=== PATIENT | male | born 1990 | race Caucasian/White ===

== ENCOUNTER 2020-10-24 23:33 | Inpatient (IN) | payer MEDICAID, SELFPAY ==
[2020-10-24 23:34] VITALS: BP 121/89; PULSE 131; RESP 18; TEMP 36.6; O2SAT 95; BMI 23.0
[2020-10-25] VITALS (7 sets, daily range): BP systolic 103–123; BP diastolic 60–76; PULSE 77–108; RESP 12–18; TEMP 36.4–37; O2SAT 94–99; BMI 24.6
--- NOTE | 2020-10-25 00:18 | EKG12_ITS ---
Test Reason : SBSTANCE ABUSE Blood Pressure : / mmHG Vent. Rate : 106 BPM Atrial Rate : 106 BPM P-R Int : 148 ms QRS Dur : 078 ms QT Int : 348 ms P-R-T Axes : 053 075 041 degrees QTc Int : 462 ms Sinus tachycardia Nonspecific T wave abnormality Abnormal ECG Confirmed by TRACY SCHOFIELD, ESTEPHANIA ([id number]), food editor RAS GUZMAN ([id number]) on 10/28/2020 9:46:55 AM Referred By: CHLOE Confirmed By:ESTEPHANIA MOLINA MD
--- NOTE | 2020-10-25 00:19 | EDS_ITS ---
HPI History of Present Illness Chief Complaint: Substance Abuse Informant: patient Narrative Narrative: Patient request detox from alcohol and heroin. He states he occasionally does use meth. He will use benzos not uncommonly although that said not his primary drug. He did use benzos today. He injected heroin earlier today. He last drank shortly before coming in. He states he drinks about 12-15 beers a day. He is not sure what happens if he does not drink because he is either always drinking and using drugs or he is in detox. He has been in detox several times. His last was about 2 to 3 weeks ago in [facility]. He states he was clean for about 3 hours after leaving. Detox helps his addiction problems a little bit. Nothing specifically makes them worse. PFSH [facility] Medical History Anxiety Hepatitis C Opiate addiction Smoker Home Medications NK 10/24/20 [History Last Taken Unknown] Allergy/AdvReac Type Severity Reaction Status Date / Time amoxicillin Allergy Angioedema Verified 10/24/20 23:38 Penicillins Allergy Angioedema Verified 10/24/20 23:38 cillins Allergy Angioedema Uncoded 10/24/20 23:38 Surgical History History of mandibular surgery Social History Smoking Status: Current every day smoker tobacco type: cigarettes ROS ROS ED Constitutional Constitutional ED: Denies chills or fever(s) Eyes Eyes: Denies blurry vision ENT ENT ED: Reports rhinorrhea; Denies sore throat Cardiovascular Cardiovascular: Reports other Details: No palpations despite increased heart rate on exam. ; Denies chest pain or palpitations Respiratory/Chest Respiratory/Chest: Denies cough or dyspnea Gastrointestinal Gastrointestinal: Denies abdominal pain, diarrhea, nausea or vomiting Genitourinary Genitourinary ED: Denies dysuria Musculoskeletal Musculoskeletal: Denies arthralgias or myalgias Integumentary Reports other Details: Patient does inject. He denies any history with abscesses or infections. ; Denies abscess or rash Neurologic Neurologic: Denies headache(s) Hematologic/Lymphatic Hematologic/Lymphatic: Denies easy bleeding or easy bruising Allergic/Immunologic Allergic/Immunologic ED: Denies mouth swelling EXAM Physical Exam Const Vital Signs: 10/24/20 23:34 10/25/20 00:55 Temperature 97.8 F 98.2 F Temperature Source Temporal Oral Pulse Rate 131 H 108 H Respiratory Rate 18 12 Blood Pressure 121/89 H 113/76 Blood Pressure Mean 99 88 Blood Pressure Source Monitor Blood Pressure Position Semi-Fowlers Blood Pressure Location Right Arm Pulse Ox 95 94 Oxygen Delivery Method Room Air Room Air Positive well nourished and well developed General Appearance ED: well developed and NAD HEENT atraumatic Eyes EOMs intact bilaterally Chest Wall inspection of chest normal Resp normal respiratory effort and clear to auscultation bilaterally Cardio regular rhythm Rate: tachycardic GI soft to palpation, non-tender, non-distended and no masses Back/Spine no CVA tenderness Extremity Extremity Narrative: He has some track bliss more in his right antecubital fossa than left. No signs of infections. General Extremety ED: Negative for edema or tenderness General Extremity: Negative for edema Neuro oriented x3 Neuro Narrative: Gait is stable when he got up to go to the bathroom. Sensorium / Orientation: alert Psych mental status grossly normal Skin Skin Narrative: Track bliss but no signs of infections. Lesions: no lesions Rashes: no rashes MDM MDM MDM Narrative Medical decision making narrative: Patient's results show essentially normal CBC. Minimal decrease potassium that should correct with diet. Tox screen was positive for benzos and cannabis. Opiates were negative but if he uses fentanyl this may not show. Alcohol was 38. I rechecked the patient. He is sound asleep. I did discuss case with hospitalist. Patient has a somewhat complex history. Lab Data Attestation: I reviewed the patient's lab results. Labs: Laboratory Results - last 24 hr 10/25/20 10/25/20 10/25/20 00:45 00:55 00:55 WBC 6.6 RBC 4.34 L Hgb 13.9 Hct 40.9 MCV 94.2 H MCH 32.0 MCHC 34.0 RDW Std Deviation 44.3 H RDW Coeff of Regla 12.8 Plt Count 236 MPV 9.2 Immature Gran % (Auto) 0.200 Neut % (Auto) 43.2 L Lymph % (Auto) 41.7 H [place] % (Auto) 8.2 Eos % (Auto) 5.9 H Baso % (Auto) 0.8 Absolute Neuts (auto) 2.8 Absolute Lymphs (auto) 2.74 Nucleated RBC % 0 Sodium 141 Potassium 3.2 L Chloride 108 H Carbon Dioxide 26.0 Anion Gap 7 BUN 10 Creatinine 0.78 Estim Creat Clear Calc 149.26 Est GFR (MDRD) Af Amer 153 Est GFR (MDRD) Non-Af 126 BUN/Creatinine Ratio 12.9 Glucose 91 Calcium 8.4 L Total Bilirubin 0.20 AST 49 H ALT 106 H Alkaline Phosphatase 70 Total Protein 6.8 Albumin 3.4 Globulin 3.4 Albumin/Globulin Ratio 1.0 Urine Opiates Screen NEGATIVE Urine Methadone Screen NEGATIVE Ur Barbiturates Screen NEGATIVE Ur Phencyclidine Scrn NEGATIVE Ur Amphetamines Screen NEGATIVE U Methamphetamin-MDMA NEGATIVE U Benzodiazepines Scrn POSITIVE H Urine Cocaine Screen NEGATIVE U Cannabinoids Screen POSITIVE H Ur Drug Screen Comment Ethyl Alcohol 10/25/20 00:55 WBC RBC Hgb Hct MCV MCH MCHC RDW Std Deviation RDW Coeff of Regla Plt Count MPV Immature Gran % (Auto) Neut % (Auto) Lymph % (Auto) [place] % (Auto) Eos % (Auto) Baso % (Auto) Absolute Neuts (auto) Absolute Lymphs (auto) Nucleated RBC % Sodium Potassium Chloride Carbon Dioxide Anion Gap BUN Creatinine Estim Creat Clear Calc Est GFR (MDRD) Af Amer Est GFR (MDRD) Non-Af BUN/Creatinine Ratio Glucose Calcium Total Bilirubin AST ALT Alkaline Phosphatase Total Protein Albumin Globulin Albumin/Globulin Ratio Urine Opiates Screen Urine Methadone Screen Ur Barbiturates Screen Ur Phencyclidine Scrn Ur Amphetamines Screen U Methamphetamin-MDMA U Benzodiazepines Scrn Urine Cocaine Screen U Cannabinoids Screen Ur Drug Screen Comment Ethyl Alcohol 38.0 Discharge Plan Dx/Rx/DC Orders Clinical Impression: Alcohol abuse, Opiate abuse, continuous Disposition Disposition: Acute Care Hospital [facility] Discharge Date/Time: 10/25/20 04:32
[2020-10-25 01:26] LABS: AST(SGOT) 49 U/L (15-37); Alanine Aminotransfer ALT/SGPT 106 U/L (16-61); Albumin, Serum 3.4 g/dL (3.2-5.0); Alkaline Phosphatase 70 U/L (45-117); Anion Gap 7 (5-15); BUN 10 mg/dL (7-18); BUN/Creat Ratio 12.9 RATIO (10-20); Calcium,Total 8.4 mg/dL (8.5-10.1); Chloride 108 mmol/L (98-107); Creatinine, Serum 0.78 mg/dL (0.70-1.30); EST Glomerular Filtration Rate 126 mL/min (>60); Est Glom Filt Rate - Afr Amer 153 mL/min (>60); Estimated Creatinine Clearance 149.26 ml/min; Globulin 3.4 g/dL (2.2-4.2); Glucose 91 mg/dL (74-106); Potassium 3.2 mmol/L (3.5-5.1); Protein, Total 6.8 g/dL (6.4-8.2); Sodium Level 141 mmol/L (136-145)
[2020-10-25 01:27] LABS: Absolute Lymphocyte Count 2.74 X10^3/uL (0.83-4.51); Absolute Neutrophil Count 2.8 X10^3/uL (2.0-7.7); Basophil# 0.05 X10^3/uL; Basophil% 0.8 % (0-1); Eosinophil# 0.39 X10^3/uL; Eosinophils% 5.9 % (0-5); Hematocrit 40.9 % (40-54); Hemoglobin 13.9 g/dL (13.0-16.5); Lymphocyte # 2.74 X10^3/ul (0.83-4.51); Lymphocyte % 41.7 % (19-41); Mean Corpuscular Volume 94.2 fL (80-94); Mean Platelet Vol. 9.2 fl (6.2-12.0); Monocyte# 0.54 X10^3/uL; Monocyte% 8.2 % (0-10); NRBC Flagged by Analyzer 0 % (0-5); Neutrophil # 2.84 X10^3/uL (2.7-7.7); Neutrophil % 43.2 % (47-70); Platelet Count 236 K/mm3 (150-450); RBC Distribution Width CV 12.8 % (11.6-14.6); RBC Distribution Width SD 44.3 fl (35.1-43.9); Red Blood Count 4.34 M/mm3 (4.6-6.2); White Blood Count 6.6 K/mm3 (4.4-11.0)
[2020-10-25 01:28] LABS: Amphetamine Urine VISTA NEGATIVE (<1000 ng/mL); Barbiturate Urine VISTA NEGATIVE (< 200 ng/mL); Benzodiazepine Urine VISTA POSITIVE (< 200 ng/mL); Cocaine Urine VISTA NEGATIVE (< 300 ng/mL); Ecstacy Urine VISTA NEGATIVE (< 500 ng/mL); Methadone Urine VISTA NEGATIVE (< 300 ng/mL); PCP Urine VISTA NEGATIVE (< 25 ng/mL); THC Urine VISTA POSITIVE (< 50 ng/mL); Vista UDS pH Range 5
--- NOTE | 2020-10-25 02:50 | PCM.HP.STD ---
HPI - General General Date of Admission: 10/25/20 Date of Service: 10/25/20 Chief Complaint: Request for medical stabilisation HPI Narrative JOSE YUSUF, is a 30 M who presents requesting for medical stabilization from alcohol and opioid withdrawal. Patient admits to drinking about a bottle of hard liquor and 12 to 15 cans of beer every day. He has been using half a gram of heroin every day. He admitted to having a history of detox 15 times. He was last in detox 2 to 3 weeks ago in [facility]. He stated that he was clean for about 3 hours at 11. He last used heroin a couple of hours prior to admission. His vitals were stable in the ED. His blood work was significant for potassium of 3.2. AST and ALT was mildly elevated at 49 and 106 respectively. Urine tox was positive for benzodiazepines and cannabinoids. [facility] Medical History Anxiety Hepatitis C Opiate addiction Smoker Home Medications NK 10/24/20 [History Last Taken Unknown] Allergy/AdvReac Type Severity Reaction Status Date / Time amoxicillin Allergy Angioedema Verified 10/24/20 23:38 Penicillins Allergy Angioedema Verified 10/24/20 23:38 cillins Allergy Angioedema Uncoded 10/24/20 23:38 Family History (Updated 10/25/20 @ 06:[address] Carrie Hodgson MD) Mother Cancer Heart disease Father Heart disease Surgical History History of mandibular surgery Social History (Updated 10/25/20 @ 06:[address] Carrie Hodgson MD) housing: homeless current gender identity: male Smoking Status: Current every day smoker tobacco type: cigarettes alcohol intake: current Previous attempts at quittin substance use type: heroin and IV drugs ROS ROS Narrative Constitutional: Denies: Anorexia, Chills, Fever, Night Sweats, Weight Change Eyes: Denies: Blurred vision, Cataracts, Conjunctivae Inflammation, Pain, Redness, Vision Change HEENT: Denies: Difficulty Hearing, Difficulty Swallowing, Head Aches, Hearing Changes, Sinus Congestion, Sinus Drainage Cardiovascular: Denies: Chest Pain, Orthopnea, Palpitations Respiratory: Denies: Cough, Shortness of breath at rest, Sputum production Gastrointestinal: Denies: Abdominal Pain, Nausea, Vomiting Genitourinary: Denies: Dysuria Musculoskeletal: Denies: Joint Pain, Joint stiffness, Joint swelling, Joint Tenderness Skin: Denies: Rash, Wounds Neurological: Denies: Numbness, Tingling, Focal weakness Vital Signs Vital Signs Vital Signs: 10/24/20 23:34 10/25/20 00:55 Temperature 97.8 F 98.2 F Temperature Source Temporal Oral Pulse Rate 131 H 108 H Respiratory Rate 18 12 Blood Pressure 121/89 H 113/76 Blood Pressure Mean 99 88 Blood Pressure Source Monitor Blood Pressure Position Semi-Fowlers Blood Pressure Location Right Arm Pulse Ox 95 94 Oxygen Delivery Method Room Air Room Air Weight Weight: 74.843 kg Body Mass Index (BMI) 23.0 Physical Exam Narrative Physical exam: General: Alert, Oriented x3, Cooperative, No apparent distress, Well developed HEENT: Atraumatic Oral: Moist Mucosa Neck: Supple Lungs: Clear to auscultation Cardiovascular: HS I+II, regular, no murmurs Abdomen: Bowel Sounds Present, Soft, Non Tender Extremities: No edema Skin: No rashes, No breakdown Neurological: Grossly intact Psych/Mental Status: Appropriate Results Lab / Micro Data Result Diagrams: 10/25/20 00:55 10/25/20 00:55 Labs: Laboratory Results - last 24 hr 10/25/20 00:45: Urine Opiates Screen NEGATIVE, Urine Methadone Screen NEGATIVE, Ur Barbiturates Screen NEGATIVE, Ur Phencyclidine Scrn NEGATIVE, Ur Amphetamines Screen NEGATIVE, U Methamphetamin-MDMA NEGATIVE, U Benzodiazepines Scrn POSITIVE H, Urine Cocaine Screen NEGATIVE, U Cannabinoids Screen POSITIVE H, Ur Drug Screen Comment 10/25/20 00:55: WBC 6.6, RBC 4.34 L, Hgb 13.9, Hct 40.9, MCV 94.2 H, MCH 32.0, MCHC 34.0, RDW Std Deviation 44.3 H, RDW Coeff of Regla 12.8, Plt Count 236, MPV 9.2, Immature Gran % (Auto) 0.200, Neut % (Auto) 43.2 L, Lymph % (Auto) 41.7 H, [place] % (Auto) 8.2, Eos % (Auto) 5.9 H, Baso % (Auto) 0.8, Absolute Neuts (auto) 2.8, Absolute Lymphs (auto) 2.74, Nucleated RBC % 0 10/25/20 00:55: Sodium 141, Potassium 3.2 L, Chloride 108 H, Carbon Dioxide 26.0, Anion Gap 7, BUN 10, Creatinine 0.78, Estim Creat Clear Calc 149.26, Est GFR (MDRD) Af Amer 153, Est GFR (MDRD) Non-Af 126, BUN/Creatinine Ratio 12.9, Glucose 91, Calcium 8.4 L, Total Bilirubin 0.20, AST 49 H, ALT 106 H, Alkaline Phosphatase 70, Total Protein 6.8, Albumin 3.4, Globulin 3.4, Albumin/Globulin Ratio 1.0 10/25/20 00:55: Ethyl Alcohol 38.0 Assessment & Plan Assessment/Plan (1) Alcohol abuse: (2) Opiate abuse, continuous: (3) Hypokalemia: PLAN: 1. Chronic alcohol abuse, requesting for medical stabilization Will monitor on the alcohol withdrawal protocol 2. Chronic opioid abuse, will monitor on the opiate withdrawal protocol 3. Hypokalemia, replaced, recheck in a.m. 4. Nicotine dependence, on replacement 5. Chronic hep C, not treated, advised patient to follow-up for treatment Charges/Coding Visit Charges Inpatient E&M: 33204 Init Hosp L2
[2020-10-25] MEDS: Dicyclomine 10 MG Capsule 20 MG PO ×2 (05:15→20:39)
[2020-10-25] MEDS: Potassium Chloride Oral Tablet 20 MEQ 60 MEQ PO (05:15)
[2020-10-25] MEDS: Buprenorphine HCl 2 MG TAB.SUBL SL ×3 (05:16→20:38)
[2020-10-25] MEDS: Ibuprofen 600 MG Tablet PO ×3 (05:16→20:42)
[2020-10-25] MEDS: Phenobarbital 32.4 MG Tablet 64.8 MG PO ×5 (05:16→20:38)
[2020-10-25] MEDS: Methocarbamol 750 MG Tablet 1500 MG PO ×3 (05:16→20:38)
[2020-10-25] MEDS: Thiamine Hydrochloride 100 MG Tablet PO (09:18)
[2020-10-25] MEDS: Folic Acid 1 MG Tablet PO (09:18)
--- NOTE | 2020-10-25 13:53 | PN.HOSP_ITS ---
Subjective Subjective He notes that he is continued leg cramping. He has generalized body aches but is more comfortable today. He has occasional stomach cramps and nausea but no vomiting. He last used any heroin about 30 hours ago. He does feel like the medications are helping his withdrawal symptoms. Objective Data Objective Data Vital Signs: Vital Signs Temp Pulse Resp BP Pulse Ox 98.1 F 87 18 114/75 98 10/25/20 13:03 10/25/20 13:03 10/25/20 13:03 10/25/20 13:03 10/25/20 13:03 Oxygen Delivery Method Room Air Weight: 176 lb 12.972 oz Body Mass Index (BMI) 24.6 Intake & Output: Intake and Output for Last 24 Hours 10/23/20 10/24/20 10/25/20 23:59 23:59 23:59 Intake Total 400 / 400 Balance 400 / 400 Lab / Micro Data Result Diagrams: 10/25/20 00:55 10/25/20 00:55 Labs: Laboratory Results - last 24 hr 10/25/20 00:45: Urine Opiates Screen NEGATIVE, Urine Methadone Screen NEGATIVE, Ur Barbiturates Screen NEGATIVE, Ur Phencyclidine Scrn NEGATIVE, Ur Amphetamines Screen NEGATIVE, U Methamphetamin-MDMA NEGATIVE, U Benzodiazepines Scrn POSITIVE H, Urine Cocaine Screen NEGATIVE, U Cannabinoids Screen POSITIVE H, Ur Drug Screen Comment 10/25/20 00:55: WBC 6.6, RBC 4.34 L, Hgb 13.9, Hct 40.9, MCV 94.2 H, MCH 32.0, MCHC 34.0, RDW Std Deviation 44.3 H, RDW Coeff of Regla 12.8, Plt Count 236, MPV 9.2, Immature Gran % (Auto) 0.200, Neut % (Auto) 43.2 L, Lymph % (Auto) 41.7 H, [place] % (Auto) 8.2, Eos % (Auto) 5.9 H, Baso % (Auto) 0.8, Absolute Neuts (auto) 2.8, Absolute Lymphs (auto) 2.74, Nucleated RBC % 0 10/25/20 00:55: Sodium 141, Potassium 3.2 L, Chloride 108 H, Carbon Dioxide 26.0, Anion Gap 7, BUN 10, Creatinine 0.78, Estim Creat Clear Calc 149.26, Est GFR (MDRD) Af Amer 153, Est GFR (MDRD) Non-Af 126, BUN/Creatinine Ratio 12.9, Glucose 91, Calcium 8.4 L, Total Bilirubin 0.20, AST 49 H, ALT 106 H, Alkaline Phosphatase 70, Total Protein 6.8, Albumin 3.4, Globulin 3.4, Albumin/Globulin Ratio 1.0 10/25/20 00:55: Ethyl Alcohol 38.0 Physical Exam Narrative In bed with no acute distress or tachypnea. His lungs were clear to auscultation bilaterally. His heart was regular with a controlled rate and no murmurs or gallops. His skin had no track lines or erythema at his injection sites. He had no pretibial edema or venous stasis changes. He had a normal affect and mood and was interactive when engaged. Assessment & Plan Assessment/Plan (1) Opiate abuse, continuous: (2) Hypokalemia: (3) Alcohol abuse: PLAN: 30-year-old with polysubstance abuse secondary to depression in the setting of an acute transaminitis and hypokalemia. I will repeat his AST and ALT on the morning of 10/26/2020. He will continue with buprenorphine and his alcohol withdrawal assessment. I will supplement his potassium to the oral route and repeat his BMP in the morning. He will be seen by [facility] for outpatient support of his polysubstance abuse. He was open to discussion about emotional health counseling which she has refused in the past. He will continue with his nicotine replacement for his 2 pack/day use. I did review the importance of follow-up of his hepatitis C. He notes that he is interested in doing so but needs to be sober for 6 months in order to pursue treatment. He has only had about 2 weeks of successful sobriety (he actually left an inpatient treatment center after 2 weeks and resume his use).
[2020-10-25] MEDS: Potassium Chloride Oral Tablet 20 MEQ 40 MEQ PO (14:10)
[2020-10-25] MEDS: cloNIDine HCl 0.1 MG Tablet PO (20:39)
[2020-10-26] VITALS (7 sets, daily range): BP systolic 96–109; BP diastolic 61–77; PULSE 75–89; RESP 16; TEMP 36.4–36.7; O2SAT 96–98
[2020-10-26] MEDS: Phenobarbital 32.4 MG Tablet 64.8 MG PO ×6 (01:14→21:30)
[2020-10-26] MEDS: Gabapentin 300 MG Capsule PO ×2 (01:14→21:41)
[2020-10-26] MEDS: Methocarbamol 750 MG Tablet 1500 MG PO ×3 (05:17→23:34)
[2020-10-26] MEDS: Buprenorphine HCl 2 MG TAB.SUBL SL ×3 (05:17→21:30)
[2020-10-26] MEDS: Ibuprofen 600 MG Tablet PO ×2 (05:17→21:42)
[2020-10-26 07:06] LABS: AST(SGOT) 46 U/L (15-37); Alanine Aminotransfer ALT/SGPT 111 U/L (16-61); Anion Gap 5 (5-15); BUN 13 mg/dL (7-18); BUN/Creat Ratio 17.4 RATIO (10-20); Calcium,Total 8.2 mg/dL (8.5-10.1); Chloride 106 mmol/L (98-107); Creatinine, Serum 0.75 mg/dL (0.70-1.30); EST Glomerular Filtration Rate 132 mL/min (>60); Est Glom Filt Rate - Afr Amer 159 mL/min (>60); Estimated Creatinine Clearance 156.18 ml/min; Glucose 86 mg/dL (74-106); Potassium 4.6 mmol/L (3.5-5.1); Sodium Level 137 mmol/L (136-145)
--- NOTE | 2020-10-26 08:05 | PN.HOSP_ITS ---
Subjective Subjective Patient is a 30-year-old gentleman with history of chronic opioid dependence uses heroin and fentanyl admitted with acute opioid withdrawal Objective Data Objective Data Vital Signs: Vital Signs Temp Pulse Resp BP Pulse Ox 97.5 F L 81 16 96/66 98 10/26/20 05:08 10/26/20 05:08 10/26/20 05:08 10/26/20 05:08 10/26/20 05:08 Oxygen Delivery Method Room Air Weight: 80.2 kg Body Mass Index (BMI) 24.6 Intake & Output: Intake and Output for Last 24 Hours 10/24/20 10/25/20 10/26/20 23:59 23:59 23:59 Intake Total 900 / 900 1000 / 1000 Output Total 600 / 600 Balance 900 / 300 400 / 400 Lab / Micro Data Result Diagrams: 10/25/20 00:55 10/26/20 06:32 Labs: Laboratory Results - last 24 hr 10/26/20 06:32: Sodium 137, Potassium 4.6, Chloride 106, Carbon Dioxide 26.0, Anion Gap 5, BUN 13, Creatinine 0.75, Estim Creat Clear Calc 156.18, Est GFR (MDRD) Af Amer 159, Est GFR (MDRD) Non-Af 132, BUN/Creatinine Ratio 17.4, G lucose 86, Calcium 8.2 L, AST 46 H, ALT 111 H Physical Exam Narrative GENERAL: cooperative HEENT: Atraumatic; EYES; Anicteric, Normal Conjunctiva NECK; supple, normal thyroid, RESPIRATORY: Diminished to auscultation CARDIOVASCULAR: Regular S1 S2, GI: soft, normoactive bowel sounds, : No Renal angle tenderness; EXTREMITIES: No edema, no clubbing, MUSCULOSKELETAL: no muscle waisting NEURO: Awake; no lateralizing signs. SKIN: No Rash PSYCH; Flat affect Assessment & Plan Assessment/Plan (1) Opiate abuse, continuous: (2) Hypokalemia: (3) Alcohol abuse: PLAN: Patient is a 30-year-old gentleman with history of chronic opioid dependence uses heroin and fentanyl admitted with acute opioid withdrawal 1. Acute opiate withdrawal - Patient has been admitted to the regular nursing floor currently being managed with a [facility] medical stabilization program with tapering dose of Subutex 10 and adjuvant treatment for his other symptoms 2. Mild transaminitis ?Monitoring daily LFTs 3. Hypokalemia ?Corrected per protocol 4. Tobacco dependence - Counseled on cessation, offered nicotine patch for tobacco cravings 5. DVT prophylaxis ?Low risk did encourage ambulation Charges/Coding Visit Charges Inpatient E&M: 39096 Subs Hosp L2
[2020-10-26] MEDS: Thiamine Hydrochloride 100 MG Tablet PO (08:51)
[2020-10-26] MEDS: Folic Acid 1 MG Tablet PO (08:51)
[2020-10-26] MEDS: Dicyclomine 10 MG Capsule 20 MG PO ×3 (09:07→23:34)
[2020-10-26] MEDS: cloNIDine HCl 0.1 MG Tablet PO (09:07)
[2020-10-26] MEDS: Acetaminophen 500 MG Tablet PO (09:07)
--- NOTE | 2020-10-26 11:33 | ADDICTION ---
This hand sign writer met with PT to conduct ASAM, MSE, AUDIT, DUDIT assessments and to plan for d/c. PT A+Ox4 and participated actively. All assessments completed. This worker is working on getting client into a residential facility. D/P will be completed once a facility is acquired. This worker will discuss transportation once residential facility is determined.
[2020-10-27 00:52] VITALS: BP 106/69; PULSE 83; RESP 16; TEMP 36.5; O2SAT 96
[2020-10-27] MEDS: Phenobarbital 32.4 MG Tablet 64.8 MG PO ×5 (00:56→19:14)
[2020-10-27] MEDS: hydrOXYzine PAM 25 MG Capsule 50 MG PO ×4 (00:56→22:41)
[2020-10-27] MEDS: Buprenorphine HCl 2 MG TAB.SUBL SL ×2 (05:08→17:11)
[2020-10-27] MEDS: Ibuprofen 600 MG Tablet PO (05:45)
[2020-10-27] MEDS: Methocarbamol 750 MG Tablet 1500 MG PO ×2 (05:45→22:41)
--- NOTE | 2020-10-27 07:26 | PCM.PN.HOSP ---
Subjective Subjective Patient seen admit to significant improvement in his overall condition regarding his withdrawal symptoms Objective Data Objective Data Vital Signs: Vital Signs Temp Pulse Resp BP Pulse Ox 97.7 F L 83 16 106/69 96 10/27/20 00:52 10/27/20 00:52 10/27/20 00:52 10/27/20 00:52 10/27/20 00:52 Oxygen Delivery Method Room Air Weight: 80.2 kg Body Mass Index (BMI) 24.6 Intake & Output: Intake and Output for Last 24 Hours 10/25/20 10/26/20 10/27/20 23:59 23:59 23:59 Intake Total 900 / 900 2250 / 2570 620 / 620 Output Total 600 / 600 Balance 900 / 300 1650 / 1970 620 / 620 Lab / Micro Data Result Diagrams: 10/25/20 00:55 10/26/20 06:32 Physical Exam Narrative GENERAL: cooperative HEENT: Atraumatic; EYES; Anicteric, Normal Conjunctiva NECK; supple, normal thyroid, RESPIRATORY: Diminished to auscultation CARDIOVASCULAR: Regular S1 S2, GI: soft, normoactive bowel sounds, : No Renal angle tenderness; EXTREMITIES: No edema, no clubbing, MUSCULOSKELETAL: no muscle waisting NEURO: Awake; no lateralizing signs. SKIN: No Rash PSYCH; Flat affect Assessment & Plan Assessment/Plan (1) Opiate abuse, continuous: (2) Hypokalemia: (3) Alcohol abuse: PLAN: Patient is a 30-year-old gentleman with history of chronic opioid dependence uses heroin and fentanyl admitted with acute opioid withdrawal 1. Acute opiate withdrawal - Patient has been admitted to the regular nursing floor currently being managed with a [facility] medical stabilization program with tapering dose of Subutex 10 and adjuvant treatment for his other symptoms -10/27/2020; Patient seen admit to significant improvement in his overall condition regarding his withdrawal symptoms. Patient also to be evaluated by the counseling services 2. Mild transaminitis ?Monitoring daily LFTs 3. Hypokalemia ?Corrected per protocol 4. Tobacco dependence - Counseled on cessation, offered nicotine patch for tobacco cravings 5. DVT prophylaxis ?Low risk did encourage ambulation Charges/Coding Visit Charges Inpatient E&M: 79178 Subs Hosp L2
[2020-10-27] MEDS: Thiamine Hydrochloride 100 MG Tablet PO (08:42)
[2020-10-27] MEDS: Gabapentin 300 MG Capsule PO (08:42)
[2020-10-27] MEDS: Dicyclomine 10 MG Capsule 20 MG PO ×2 (08:42→22:41)
[2020-10-27] MEDS: Folic Acid 1 MG Tablet PO (08:43)
[2020-10-27 08:47] VITALS: BP 107/82; PULSE 87; RESP 16; TEMP 36.6; O2SAT 100
--- NOTE | 2020-10-27 11:56 | ADDICTION ---
This short story writer followed up with client to inform him that [facility] does not currently have any beds. This short story writer will continue to look for residential inpatient facilities. Patient has agreed that if a bed has not been located upon discharge he will admit to [facility] for housing and addiction groups.
[2020-10-27] MEDS: cloNIDine HCl 0.1 MG Tablet PO (13:11)
[2020-10-27 13:50] VITALS: BP 111/61; PULSE 88; RESP 16; TEMP 36.4; O2SAT 99
--- NOTE | 2020-10-27 14:44 | CASEMGMT ---
SOCIAL WORK Received call from Candi Addiction Therapist reporting patient has been accepted to residential treatment through [facility] in [place]. Patient will be picked up at 11:30a tomorrow, 10/28/20. MAIDA Lozano, CLINICAL FACULTY
--- NOTE | 2020-10-27 16:55 | CHAPLAIN ---
Type of Pastoral Visit _x__ Initial Visit ___ Follow-up Visit ___ On-call Visit ___ General Patient Visit ___ Spiritual Assessment ___ Family Conference ___ Bereavement ___ Rapid Response ___ Code Blue ___ Other (describe below) Pastoral Care Referral From _x__ Patient ___ Family ___ Nurse ___ Physician ___ Director Of Cardiac Rehabilitation ___ Sustainable Landscape Architect ___ Other (describe below) Sacrament/Intervention _x__ Active listening ___ Anointing ___ Mu-Ism ___ Bereavement ___ Communion ___ Marimar exploration ___ _x__ Life review _x__ Prayer ___ Reconciliation ___ Sacrament of Sick _x__ Supportive presence ___ Wedding ___ Other (describe below) Pastoral Comments patient is not sure where he will be going but hoping for a rehab bed so he can work on his sobriety; pt willing to talk and give life review and hope for time to be a father to his children
[2020-10-27 22:47] VITALS: BP 127/81; PULSE 86; RESP 18; TEMP 36.3; O2SAT 97
[2020-10-28] MEDS: Phenobarbital 32.4 MG Tablet 64.8 MG PO ×2 (01:12→06:10)
[2020-10-28 06:12] VITALS: BP 108/72; PULSE 71; RESP 16; TEMP 36.4; O2SAT 100
--- NOTE | 2020-10-28 07:24 | PCM.DC.SUM ---
Providers Date of Admission: 10/25/20 Primary Care Physician: No Primary Care Phys Reason For Visit: ACUTE ALCOHOL & OPIOID WITHDRAWL Diagnosis Discharge Diagnosis (1) Opiate abuse, continuous: Status: Acute Code(s): F11.10 - Opioid abuse, uncomplicated (2) Hypokalemia: Status: Acute Code(s): E87.6 - Hypokalemia (3) Alcohol abuse: Status: Acute Code(s): F10.10 - Alcohol abuse, uncomplicated Medications at Discharge Home Medications NK 10/24/20 Hospital Course Summary of Care Provided Minutes Spent on Discharge: 35 Hospital Course: Patient is a 30-year-old gentleman with history of chronic opioid dependence uses heroin and fentanyl admitted with acute opioid withdrawal 1. Acute opiate withdrawal - Patient has been admitted to the regular nursing floor currently being managed with a [facility] medical stabilization program with tapering dose of Subutex 10 and adjuvant treatment for his other symptoms -10/27/2020; Patient seen admit to significant improvement in his overall condition regarding his withdrawal symptoms. Patient also to be evaluated by the counseling services -10/28/2020 patient was discharged home to follow-up with the [facility] counseling services as outpatient 2. Mild transaminitis ?Monitoring daily LFTs 3. Hypokalemia ?Corrected per protocol 4. Tobacco dependence - Counseled on cessation, offered nicotine patch for tobacco cravings 5. DVT prophylaxis ?Low risk did encourage ambulation Physical Exam Narrative GENERAL: cooperative HEENT: Atraumatic; EYES; Anicteric, Normal Conjunctiva NECK; supple, normal thyroid, RESPIRATORY: Diminished to auscultation CARDIOVASCULAR: Regular S1 S2, GI: soft, normoactive bowel sounds, : No Renal angle tenderness; EXTREMITIES: No edema, no clubbing, MUSCULOSKELETAL: no muscle waisting NEURO: Awake; no lateralizing signs. SKIN: No Rash PSYCH; Flat affect Weight / BMI Weight Weight: 80.2 kg Body Mass Index (BMI) 24.6 ABG / Lab / Microbiology Data Result Diagrams: 10/25/20 00:55 10/26/20 06:32 D/C Instructions Discharge Diet: No restrictions Discharge Activity: Return to Normal Activity Call your doctor if you observe: Fever of 101 or Higher, Shortness of breath, Fainting spells and Chest pain Meaningful Use Info Meaningful Use Diagnoses (Choose all that apply): None applicable Discharge Plan Admission Admit Date/Time: 10/25/20 02:50 Primary Reason for Your Visit: Acute opiate withdrawal Attending Provider: Gume Lopez Primary Care Provider: Care Physician,No Primary Instructions Patient Instructions: ED Opiate Abuse, ED Alcohol Abuse Discharge Orders/Prescriptions Prescriptions: Continued NK RF: 0 Referrals / Follow Up: Care Physician,No Primary [Primary Care Provider] - Disposition Disposition (needs filled in before D/C Order can be placed): Home, Self Care Charges/Coding Visit Charges Inpatient E&M: [id number] Disch Hosp
[2020-10-28 09:13] VITALS: BP 109/74; PULSE 92; RESP 18; TEMP 36.9; O2SAT 97
[2020-10-28 09:15] VITALS: BP 109/74; PULSE 92; RESP 18; TEMP 36.9; O2SAT 97
== END 2020-10-28 11:30 | disposition home or self-care (01) | DRG 773 ==
LOC: ED 10-25 00:35 → MS3 10-25 03:26
PROVIDERS: Internal Medicine; Admitting Provider Internal Medicine; Emergency Provider Emergency Medicine; Visit Provider Internal Medicine
DX: F11.23 Opioid dependence with withdrawal (principal); E87.6 Hypokalemia; F41.9 Anxiety disorder, unspecified; B18.2 Chronic viral hepatitis C; R74.01 Elevation of levels of liver transaminase levels; F10.10 Alcohol abuse, uncomplicated; F17.210 Nicotine dependence, cigarettes, uncomplicated; Y90.1 Blood alcohol level of 20-39 mg/100 ml
CPT/HCPCS: 36415; 80048; 80053; 80307; 82077; 84450; 84460; 85025; 93005; 99281; 99406